=== PATIENT | female | born 1955 | race American Indian/Alaskan Native ===

== ENCOUNTER 2017-02-04 13:54 | Emergency (ER) | payer MEDICAID ==
[2017-02-04 14:33] LABS: Hematocrit 38.1 % (30.3-42.9); Hemoglobin 12.8 gm/dl (10.1-14.3); Mean Corpuscular HGB Conc 34 % (30-34); Mean Corpuscular Hemoglobin 29 pg (28-32); Mean Corpuscular Volume 85 fl (79-97); Platelet Count 140 K/mm3 (140-440); Red Blood Count 4.47 M/mm3 (3.65-5.03); Red Cell Distribution Width 13.8 % (13.2-15.2); White Blood Count 6.9 K/mm3 (4.5-11.0)
[2017-02-04 14:50] LABS: Alanine Aminotransferase 46 units/L (7-56); Albumin 3.5 g/dL (3.9-5); Albumin/Globulin Ratio 0.9 %; Alkaline Phosphatase 112 units/L (35-129); Anion Gap 19 mmol/L; BUN/Creatinine Ratio 7.14; Blood Urea Nitrogen 5 mg/dL (7-17); Calcium 9.5 mg/dL (8.4-10.2); Carbon Dioxide 27 mmol/L (22-30); Glucose 116 mg/dL (65-100); Lipase 29 units/L (13-60); Potassium 3.3 mmol/L (3.6-5.0); Sodium 133 mmol/L (137-145); Total Protein 7.6 g/dL (6.3-8.2)
[2017-02-04 15:46] LABS: Basophils % (Manual) 0 % (0.0-1.8); Blastocytes % (Manual) 0 %; Eosinophils % (Manual) 0 % (0.0-4.3)
[2017-02-04 15:47] LABS: Diff Status Complete; Platelet Estimate Consistent w Auto; Target Cells 1+
[2017-02-04 20:30] VITALS: BP 111/85
[2017-02-04] MEDS ORDERED: K-DUR PO ONE (20:40)
--- NOTE | 2017-02-04 20:41 | Emergency Department Report ---
ED General Adult HPI - General Chief complaint: Abdominal Pain Stated complaint: WEAKNESS Time Seen by Provider: 02/04/17 20:29 Source: patient, RN notes reviewed Mode of arrival: Ambulatory Limitations: No Limitations - History of Present Illness Initial comments: This is a 62-year-old female who was previously on known to this provider, has a past medical history of arthritis, GERD, hypertension. She is brought in by her family "to get checked out." Patient reports that she has been feeling weak for about 1 week. She complains of weakness in her total body. This is intermittent, and does not have exacerbating or relieving factors. She denies headache, neck pain, chest pain, she does admit to cough and productive mucus, she also admits to left flank and left lower quadrant/back pain, which produced down the left lower extremity. This is intermittent, present for a few months, worse over the past week. He does not have exacerbating or relieving factors. She does complain of dysuria. The patient also admits that yesterday while out, she was walking, and "stumbled ", and reports that she stayed awake, but had a loss of awareness globally. This lasted for a few seconds. Her family corroborates that she did not pass out, or have convulsive activity, and that she did not fall. Her family further endorses of the patient appears to be her normal mental status at this time. There is no posterior leg pain or leg swelling, patient reports no recent surgeries or hospitalizations. -: Gradual, week(s) Location: back, left, lower extremity Severity scale (0 -10): 9 Consistency: intermittent Improves with: none Worsens with: none Associated Symptoms: confusion, cough, loss of appetite, malaise, weakness - Related Data Previous Rx's Medication Instructions Recorded Last Taken Type Ciprofloxacin HCl [Ciprofloxacin 500 mg PO BID #20 tablet 01/19/16 Unknown Rx TAB] Albuterol Sulfate [Proair 90 mcg IH Q4HR PRN #2 aer.[email or web address] 02/04/17 Unknown Rx Respiclick] Famotidine [Pepcid] 20 mg PO QDAY #30 tablet 02/04/17 Unknown Rx Magnesium Oxide 400 mg PO QDAY #10 tablet 02/04/17 Unknown Rx Nitrofurantoin Greene/M-Cryst 100 mg PO Q12HR #13 capsule 09/24/17 Unknown Rx [Macrobid CAP] Ondansetron [Zofran Odt] 4 mg PO QID PRN #20 tab.rapdis 02/04/17 Unknown Rx Potassium Chloride 20 meq PO QDAY #10 packet 02/04/17 Unknown Rx Allergies Allergy/AdvReac Type Severity Reaction Status Date / Time No Known Allergies Allergy Unverified 01/19/16 12:58 ED Review of Systems ROS: Stated complaint: WEAKNESS Other details as noted in HPI Constitutional: malaise, weakness Eyes: denies: eye discharge ENT: congestion. denies: epistaxis Respiratory: cough Cardiovascular: denies: chest pain Gastrointestinal: abdominal pain Genitourinary: dysuria Musculoskeletal: arthralgia, myalgia Skin: denies: lesions Neurological: weakness, confusion ED Past Medical Hx - Past Medical History Hx Hypertension: Yes Hx GERD: Yes Hx Arthritis: Yes - Surgical History Past Surgical History?: Yes Additional Surgical History: LEG - Social History Smoking Status: Current Every Day Smoker Substance Use Type: Alcohol - Medications Home Medications: Home Medications Medication Instructions Recorded Confirmed Last Taken Type Ciprofloxacin HCl [Ciprofloxacin 500 mg PO BID #20 tablet 01/19/16 Unknown Rx TAB] Albuterol Sulfate [Proair 90 mcg IH Q4HR PRN #2 [email or web address] 02/04/17 Unknown Rx Respiclick] Famotidine [Pepcid] 20 mg PO QDAY #30 tablet 02/04/17 Unknown Rx Magnesium Oxide 400 mg PO QDAY #10 tablet 02/04/17 Unknown Rx Nitrofurantoin Greene/M-Cryst 100 mg PO Q12HR #13 capsule 02/04/17 Unknown Rx [Macrobid CAP] Ondansetron [Zofran Odt] 4 mg PO QID PRN #20 tab.rapdis 02/04/17 Unknown Rx Potassium Chloride 20 meq PO QDAY #10 packet 02/04/17 Unknown Rx ED Physical Exam - General Limitations: No Limitations General appearance: alert, in no apparent distress - Head Head exam: Present: atraumatic, normocephalic - Eye Eye exam: Present: normal appearance, EOMI, other (visual acuity intact to finger counting, color perception, reading at a close distance). Absent: nystagmus - ENT ENT exam: Present: normal exam, normal orophraynx, mucous membranes moist, normal external ear exam - Neck Neck exam: Present: normal inspection, full ROM. Absent: tenderness, meningismus - Respiratory Respiratory exam: Present: rhonchi (rhonchi noted in the right hemithorax). Absent: respiratory distress - Cardiovascular Cardiovascular Exam: Present: regular rate, normal rhythm, normal heart sounds. Absent: bradycardia, tachycardia, irregular rhythm, systolic murmur, diastolic murmur, rubs, gallop - GI/Abdominal GI/Abdominal exam: Present: soft, normal bowel sounds. Absent: distended, tenderness, guarding, rebound, rigid, pulsatile mass - Extremities Exam Extremities exam: Present: normal inspection (evidence of old right lower extremity leg surgery.), full ROM, normal capillary refill, other (2+ pulses are noted in the bilateral upper and lower extremities.). Absent: tenderness, pedal edema, joint swelling, calf tenderness (there is no palpable cord or Homans sign.) - Back Exam Back exam: Present: normal inspection, full ROM. Absent: tenderness, CVA tenderness (R), CVA tenderness (L), muscle spasm, paraspinal tenderness, vertebral tenderness - Neurological Exam Neurological exam: Present: alert (patient is alert to name, location, month. Does not know the year.), oriented X3, normal gait, other (Extraocular movements intact. Tongue midline. No facial droop. Facial sensation intact to light touch in the V1, V2, V3 distribution bilaterally. 5 and 5 strength in 4 extremities.. Sensation is intact to light touch in 4 extremities.). Absent : motor sensory deficit - Psychiatric Psychiatric exam: Present: normal affect, normal mood - Skin Skin exam: Present: warm, dry, intact, normal color. Absent: rash ED Course Vital Signs 02/04/17 02/04/17 02/04/17 14:05 20:26 21:33 Temperature 97.4 F L 99.6 F Pulse Rate 90 85 Pulse Rate [ 88 Posterior Bilateral Throughout] Respiratory 18 20 Rate Respiratory 18 Rate [Posterior Bilateral Throughout] Blood Pressure 116/84 Blood Pressure 111/85 [Left] O2 Sat by Pulse 97 100 Oximetry 02/04/17 21:43 Temperature Pulse Rate Pulse Rate [ 90 Posterior Bilateral Throughout] Respiratory Rate Respiratory 21 Rate [Posterior Bilateral Throughout] Blood Pressure Blood Pressure [Left] O2 Sat by Pulse Oximetry - Reevaluation(s) Reevaluation #1: 02/04/17 21:16 Differential diagnosis: Transient global amnesia, radiculopathy, pneumonia, bronchitis, electrolyte derangement, renal colic, AAA, general medical evaluation Assessment and plan: 62-year-old female with multiple complaints, including stumbling and transient alteration in awareness, without loss of consciousness, or seizure like activity, left-sided back pain and radicular radiation, cough and mucus production, and dysuria. Patient currently alert to name, month, location, walks with a steady gait, has a GCS of 15, with an NIH score of 0. No pulmonary and posterior DVT risk factors, low risk by well's criteria. Abdomen is soft and benign. She does have some focal pulmonary findings. We will obtain noncontrast CT scan of the brain. We will obtain noncontrast CT scan of the abdomen and pelvis and two-view of the chest x-ray. She is noted to be hypokalemic, hypomagnesemic, These will be repleted. Urinalysis is pending at this time. Given the patient by her own history and family says he did not have a loss of consciousness, I think arrhythmia/structural cardiac disease is unlikely, as she has so many complaints, and her history and physical exam are unremarkable except as noted. Patient has already been in the ER for 7.5 hours without clinical decompensation with normal vital signs, therefore I would consider her to have had an appropriate period of observation. If the remainder of her studies do not demonstrate any severe abdomen bowel to, patient will be discharged to follow-up with her outpatient primary care doctor, Dr. Jett. 02/04/17 21:18 Reevaluation #2: 02/04/17 22:36 CT scan demonstrates nonspecific left-sided extra-axial mass, with no edema, mass effect or shift. Case is discussed with [facility] neurosurgeon, Dr. Tyler , the patient's history, physical exam, and overall presentation were relayed to the consulting neurosurgeon. He recommends outpatient follow-up, based on her current physical exam, CT scan findings, he does not recommend transfer at this time, or antiepileptic drug therapy at this time. He does not recommend a specific timeframe to follow-up. Reevaluation #3: 02/04/17 23:19 Patient feels improved. Rhonchi have resolved. CT scan of the abdomen and pelvis demonstrates numerous nonspecific findings. These can all be followed up by her primary care doctor. Patient urine does suggest urinary tract infection. She will be started on Macrobid. She will be discharged with magnesium supplementation, potassium supplementation, as needed albuterol, famotidine, and nausea medication. She is instructed to follow up with outpatient primary care, and outpatient neurosurgery for her incidental CT scan findings. Patient also given a copy of laboratory studies and CT scan report. She is accompanied by family at this time. Return precautions are reviewed. ED Medical Decision Making - Lab Data Result diagrams: 02/04/17 14:13 02/04/17 14:13 Vital Signs 02/04/17 02/04/17 14:05 20:26 Temperature 97.4 F L 99.6 F Pulse Rate 90 85 Respiratory 18 20 Rate Blood Pressure 116/84 Blood Pressure 111/85 [Left] O2 Sat by Pulse 97 100 Oximetry Lab Results 02/04/17 02/04/17 02/04/17 Range/Units 14:13 14:13 14:13 WBC 6.9 (4.5-11.0) K/mm3 RBC 4.47 (3.65-5.03) M/mm3 Hgb 12.8 (10.1-14.3) gm/dl Hct 38.1 (30.3-42.9) % MCV 85 (79-97) fl MCH 29 (28-32) pg MCHC 34 (30-34) % RDW 13.8 (13.2-15.2) % Plt Count 140 (140-440) K/mm3 Greene % (Auto) Stock Room Manager Add Manual Diff Complete Total Counted 100 Seg Neuts % (Manual) 36.0 L (40.0-70.0) % Band Neutrophils % 22.0 % Lymphocytes % (Manual) 28.0 (13.4-35.0) % Reactive Lymphs % (Man) 1.0 % Monocytes % (Manual) 13.0 H (0.0-7.3) % Eosinophils % (Manual) 0 (0.0-4.3) % Basophils % (Manual) 0 (0.0-1.8) % Metamyelocytes % 0 % Myelocytes % 0 % Promyelocytes % 0 % Blast Cells % 0 % Nucleated RBC % Not Reportable Seg Neutrophils # Man 2.5 (1.8-7.7) K/mm3 Band Neutrophils # 1.5 K/mm3 Lymphocytes # (Manual) 1.9 (1.2-5.4) K/mm3 Abs React Lymphs (Man) 0.1 K/mm3 Monocytes # (Manual) 0.9 H (0.0-0.8) K/mm3 Eosinophils # (Manual) 0.0 (0.0-0.4) K/mm3 Basophils # (Manual) 0.0 (0.0-0.1) K/mm3 Metamyelocytes # 0.0 K/mm3 Myelocytes # 0.0 K/mm3 Promyelocytes # 0.0 K/mm3 Blast Cells # 0.0 K/mm3 WBC Morphology Not Reportable Hypersegmented Neuts Not Reportable Hyposegmented Neuts Not Reportable Hypogranular Neuts Not Reportable Smudge Cells Not Reportable Toxic Granulation Not Reportable Toxic Vacuolation Not Reportable Dohle Bodies Not Reportable Pelger-Huet Anomaly Not Reportable Kristin Rods Not Reportable Platelet Estimate Consistent w auto Clumped Platelets Not Reportable Plt Clumps, EDTA Not Reportable Large Platelets Not Reportable Giant Platelets Not Reportable Platelet Satelliting Not Reportable Plt Morphology Comment Not Reportable RBC Morphology Not Reportable Dimorphic RBCs Not Reportable Polychromasia Not Reportable Hypochromasia Not Reportable Poikilocytosis Not Reportable Anisocytosis Not Reportable Microcytosis Not Reportable Macrocytosis Not Reportable Spherocytes Not Reportable Pappenheimer Bodies Not Reportable Sickle Cells Not Reportable Target Cells 1+ Tear Drop Cells Not Reportable Ovalocytes Not Reportable Helmet Cells Not Reportable [place] Bodies Not Reportable [place] Rings Not Reportable [place] Cells Not Reportable Bite Cells Not Reportable Crenated Cell Not Reportable Elliptocytes Not Reportable Acanthocytes (Spur) Not Reportable Rouleaux Not Reportable Hemoglobin C Crystals Not Reportable Schistocytes Not Reportable Malaria parasites Not Reportable [place] Bodies Not Reportable Hem Pathologist Commnt No Sodium 133 L (137-145) mmol/L Potassium 3.3 L (3.6-5.0) mmol/L Chloride 90.0 L (98-107) mmol/L Carbon Dioxide 27 (22-30) mmol/L Anion Gap 19 mmol/L BUN 5 L (7-17) mg/dL Creatinine 0.7 (0.7-1.2) mg/dL Estimated GFR > 60 ml/min BUN/Creatinine Ratio 7.14 % Glucose 116 H (65-100) mg/dL Calcium 9.5 (8.4-10.2) mg/dL Magnesium 1.50 L (1.7-2.3) mg/dL Total Bilirubin 1.50 H (0.1-1.2) mg/dL AST 141 H (5-40) units/L ALT 46 (7-56) units/L Alkaline Phosphatase 112 (35-129) units/L Total Protein 7.6 (6.3-8.2) g/dL Albumin 3.5 L (3.9-5) g/dL Albumin/Globulin Ratio 0.9 % Lipase 29 (13-60) units/L - EKG Data -: EKG Interpreted by Me - EKG Data 02/04/17 21:35 Sinus, 85 bpm, QTC 455 ms, T-wave inversion in aVL, T-wave inversion in V2, abnormal EKG, knocks morphologically consistent with STEMI. Currently unable to access prior EKG. - Radiology Data Radiology results: report reviewed, image reviewed Noncontrast CT scan of the brain demonstrates a well circumscribed hyperdense heterogeneous dural based extra-axial mass over the left frontal lobe that is 2 x 2.7 cm. There is moderate diffuse atrophy. Relative areas of hypodensity seen within the white matter of the cerebral hemispheres. This may represent meningioma, other etiology is not excluded. CT scan of the abdomen and pelvis demonstrates bladder wall thickening, DJD, possible gastritis. Critical care attestation.: If time is entered above; I have spent that time in minutes in the direct care of this critically ill patient, excluding procedure time. ED Disposition Clinical Impression: UTI (urinary tract infection), Hypokalemia, Intracranial mass Disposition: DC-01 TO HOME OR SELFCARE Is pt being admited?: No Does the pt Need Aspirin: No Condition: Stable Instructions: Abdominal Pain (ED) Additional Instructions: Local neurosurgeons include Dr. Saeid Mcgarry, and Dr. Chiu Follow up with any of the listed primary care doctors within the next 2 weeks. take potassium, magnesium supplementation, antibiotic therapy as directed, abdominal pain medicine and cough medicine as directed. CT scan also demonstrated nonspecific thickening in the stomach, this can be followed up by a care mgr within the next 2 months. is a local care mgr. Return to the ER right away with fevers, chills, lethargy, irritability, projectile vomiting, change in mental status, inability to tolerate liquid feeds. Follow up with a neurosurgeon within the next 2 weeks. [facility]: Primary Location [address] [place] [address] [facility] neurosurgery: Department of Neurosurgery Mailing Address: Department of Neurosurgery [id number] [place] [address] Department of Neurosurgery Office Numbers: Prescriptions: Albuterol Sulfate [Proair Respiclick] 90 mcg IH Q4HR PRN #2 aer.[email or web address] PRN Reason: Wheezing Famotidine [Pepcid] 20 mg PO QDAY #30 tablet Magnesium Oxide 400 mg PO QDAY #10 tablet Nitrofurantoin Greene/M-Cryst [Macrobid CAP] 100 mg PO Q12HR #13 capsule Ondansetron [Zofran Odt] 4 mg PO QID PRN #20 tab.rapdis PRN Reason: Nausea Potassium Chloride 20 meq PO QDAY #10 packet Referrals: KENN GONZALES MD [Staff Physician] - 3-5 Days PRIMARY CARE, [Primary Care Provider] - 3-5 Days CELY JULIAN MD [Staff Physician] - 3-5 Days GOPAL CHIU MD [Staff Physician] - 3-5 Days OPAL KUNZ MD [Staff Physician] - 3-5 Days PINO ZHANG MD [Staff Physician] - 3-5 Days
[2017-02-04] MEDS ORDERED: PROVENTIL IH ONE (21:00)
--- NOTE | 2017-02-04 21:28 | Cat Scan Report ---
FINAL REPORT EXAM: CT HEAD/BRAIN WO CON HISTORY: transient alteration on consciousness TECHNIQUE: Noncontrast serial axial images from skull base to vertex PRIORS: None. FINDINGS: There is a well-circumscribed hyperdense heterogeneous dural-based extra-axial mass over the left frontal lobe that measures up to 2 x 2.7 centimeters in axial dimension. There is moderate diffuse atrophy. There is no midline shift. Lateral ventricles are normal in size and configuration. Basilar cisterns are patent. No acute intracranial hemorrhage is identified. Areas of relative hypodensity are seen in the white matter of the cerebral hemispheres. Atherosclerotic calcifications are noted. Paranasal sinuses and mastoid air cells are well aerated. No acute osseous abnormality is identified. IMPRESSION: 1. Hyperdense extra-axial mass is seen over the left frontal lobe. This may represent meningioma. Other etiology is not excluded. This can be further assessed with contrast enhanced MRI. Neurosurgical consultation is recommended. 2. Areas of relative hypodensity are seen in the white matter of the cerebral hemispheres. This is a nonspecific finding. It may be related to chronic ischemic change from small vessel disease. UNF
--- NOTE | 2017-02-04 22:39 | XRay Report ---
FINAL REPORT EXAM: XR CHEST ROUTINE 2V HISTORY: cough rhonchi COMPARISON: None available. FINDINGS:: Frontal and lateral views of the chest obtained. Cardiac silhouette is within normal limits. No focal consolidation or effusion. No pneumothorax. Visualized bony thorax is grossly intact. Is a nodular density projecting over the medial right lung base suspect represent prominent nipple shadow. IMPRESSION:: Probable prominent nipple shadow projecting over the right lung base. Lungs otherwise clear. Followup exam suggested to assess stability of probable nipple shadow.
--- NOTE | 2017-02-04 22:49 | Cat Scan Report ---
FINAL REPORT EXAM: CT ABDOMEN PELVIS WO CON HISTORY: abd pain TECHNIQUE: Serial axial images through the abdomen and pelvis with coronal and sagittal reconstruction. PRIORS: None. FINDINGS: Study is limited by lack of intravenous contrast. No focal consolidations are seen in the lung bases. No pleural effusion is seen. There is diffuse fatty infiltration of the liver. Gallbladder, pancreas, spleen and adrenal glands appear within normal limits. Kidneys appear within normal limits. Atherosclerotic changes are seen in the aorta. No aneurysmal dilatation is seen. Bladder is decompressed. The wall the bladder appears thickened. Calcified masses are seen in the uterus, consistent with fibroids. There is gas in the endometrial canal in an area that measures 2.8 x 3.3 centimeters in axial dimension. No free fluid. Appendix appears normal. No gross bowel abnormality is identified. The wall the stomach appears thickened. No acute osseous abnormality is identified. There are degenerative changes in the spine. IMPRESSION: 1. Study is limited by lack of intravenous contrast. 2. Fatty infiltration of the liver. 3. The uterus appears abnormal. Calcified masses are seen which may represent fibroids. There gas in the endometrial canal. This is a nonspecific finding, but could indicate presence of infection and or underlying neoplastic process. J Comput Assist Tomogr. 1983 Oct; 7(5):842-5. 4. The wall the stomach appears to be thickened. This may be exaggerated by nondistention. Possibility of inflammatory or other infiltrative process is not excluded. The patient can be further assessed endoscopically if indicated. 5. The wall the bladder appears slightly thickened. This may be exaggerated by nondistention. This could be related to cystitis in the proper clinical setting.
[2017-02-04 23:14] LABS: Bacteria,Urine 1+ /HPF (Negative); Bilirubin,Urine SM (Negative); Blood,Urine SM (Negative); Ketones,Urine 20 mg/dL (Negative); Leukocyte Esterase,Urine MOD (Negative); Mucus,Urine 3+ /HPF; Nitrite,Urine NEG (Negative)
[2017-02-04] MEDS ORDERED: MACROBID PO ONE (23:18)
== END 2017-02-05 00:03 | disposition home or self-care (01) ==
LOC: ED 13:54
DX: N39.0 Urinary tract infection, site not specified (principal); E87.6 Hypokalemia; G93.9 Disorder of brain, unspecified; I10 Essential (primary) hypertension; K21.9 Gastro-esophageal reflux disease without esophagitis; M19.90 Unspecified osteoarthritis, unspecified site; F17.210 Nicotine dependence, cigarettes, uncomplicated
CPT/HCPCS: 36415; 70450; 71020; 74176; 80053; 81001; 83690; 83735; 84484; 85007; 85025; 87086; 93005; 93010; 94640; 99284

== ENCOUNTER 2018-03-03 20:29 | Emergency (ER) | payer MEDICAID ==
[2018-03-03] MEDS ORDERED: NACL 0.9% 1000 ML 1,000 ML IV ONE ×2 (21:29→23:53)
[2018-03-03 21:54] LABS: Basophils % (Auto) 0.4 % (0.0-1.8); Hematocrit 31.1 % (30.3-42.9); Hemoglobin 10.3 gm/dl (10.1-14.3); Lymphocytes # (Auto) 0.3 K/mm3 (1.2-5.4); Lymphocytes % (Auto) 4.4 % (13.4-35.0); Mean Corpuscular HGB Conc 33 % (30-34); Mean Corpuscular Hemoglobin 28 pg (28-32); Mean Corpuscular Volume 84 fl (79-97); Monocytes # (Auto) 0.5 K/mm3 (0.0-0.8); Monocytes % (Auto) 6.2 % (0.0-7.3); Platelet Count 144 K/mm3 (140-440); Red Blood Count 3.69 M/mm3 (3.65-5.03); Red Cell Distribution Width 19.1 % (13.2-15.2)
[2018-03-03] MEDS ORDERED: ZOFRAN IV ONE (22:07)
[2018-03-03] MEDS ORDERED: ZOFRAN ONE (22:11)
[2018-03-03 22:12] LABS: Alanine Aminotransferase 31 units/L (7-56); Albumin 3.1 g/dL (3.9-5); BUN/Creatinine Ratio 10; Blood Urea Nitrogen 6 mg/dL (7-17); Calcium 8.3 mg/dL (8.4-10.2); Hemolysis Index 3; Lipase 20 units/L (13-60)
--- NOTE | 2018-03-03 22:12 | Emergency Department Report ---
ED Abdominal Pain HPI - General Chief Complaint: Nausea/Vomiting/Diarrhea Stated Complaint: EMESIS/WEAKNESS Time Seen by Provider: 03/03/18 22:03 Source: patient Mode of arrival: Ambulatory Limitations: No Limitations - History of Present Illness Initial Comments: Patient is 63 years old female with history of hypertension and asthma. Patient presented to the ER complaining of abdominal pain, crampy in nature, diffuse with no radiation. Patient stated that pain started yesterday after she ate egg roll. Patient presented with nausea vomiting and watery diarrhea. Patient denied any fever, chest pain, or shortness of breath or headache. Patient is complaining of generalized weakness. MD Complaint: abdominal pain Location: diffuse Radiation: none Severity scale (0 -10): 4 Quality: cramping Consistency: intermittent Context: possible food poisoning - Related Data Previous Rx's Medication Instructions Recorded Last Taken Type Ciprofloxacin HCl [Ciprofloxacin 500 mg PO BID #20 tablet 01/19/16 Unknown Rx TAB] Albuterol Sulfate [Proair 90 mcg IH Q4HR PRN #2 aer.pow.ba 02/04/17 Unknown Rx Respiclick] Famotidine [Pepcid] 20 mg PO QDAY #30 tablet 02/04/17 Unknown Rx Magnesium Oxide 400 mg PO QDAY #10 tablet 02/04/17 Unknown Rx Nitrofurantoin [place]/M-Cryst 100 mg PO Q12HR #13 capsule 02/04/17 Unknown Rx [Macrobid CAP] Ondansetron [Zofran Odt] 4 mg PO QID PRN #20 tab.rapdis 02/04/17 Unknown Rx Potassium Chloride 20 meq PO QDAY #10 packet 02/04/17 Unknown Rx Ciprofloxacin HCl [Ciprofloxacin 500 mg PO Q12H #14 tab 03/04/18 Unknown Rx TAB] Ondansetron [Zofran Odt] 4 mg PO Q8HR PRN #14 tab.rapdis 03/04/18 Unknown Rx Allergies Allergy/AdvReac Type Severity Reaction Status Date / Time No Known Allergies Allergy Unverified 01/19/16 12:58 ED Review of Systems ROS: Stated complaint: EMESIS/WEAKNESS Other details as noted in HPI Comment: All other systems reviewed and negative Constitutional: denies: chills, fever Respiratory: denies: cough, orthopnea, shortness of breath, SOB with exertion, SOB at rest, wheezing Cardiovascular: palpitations. denies: chest pain Gastrointestinal: abdominal pain, nausea, vomiting, diarrhea. denies: constipation, hematemesis, melena, hematochezia Musculoskeletal: denies: back pain Neurological: denies: headache, weakness, numbness ED Past Medical Hx - Past Medical History Hx Hypertension: Yes Hx GERD: Yes Hx Arthritis: Yes Hx Asthma: Yes - Surgical History Additional Surgical History: LEG - Social History Smoking Status: Current Every Day Smoker Substance Use Type: Alcohol - Medications Home Medications: Home Medications Medication Instructions Recorded Confirmed Last Taken Type Ciprofloxacin HCl [Ciprofloxacin 500 mg PO BID #20 tablet 01/19/16 Unknown Rx TAB] Albuterol Sulfate [Proair 90 mcg IH Q4HR PRN #2 aer.pow.ba 02/04/17 Unknown Rx Respiclick] Famotidine [Pepcid] 20 mg PO QDAY #30 tablet 02/04/17 Unknown Rx Magnesium Oxide 400 mg PO QDAY #10 tablet 02/04/17 Unknown Rx Nitrofurantoin [place]/M-Cryst 100 mg PO Q12HR #13 capsule 02/04/17 Unknown Rx [Macrobid CAP] Ondansetron [Zofran Odt] 4 mg PO QID PRN #20 tab.rapdis 02/04/17 Unknown Rx Potassium Chloride 20 meq PO QDAY #10 packet 02/04/17 Unknown Rx Ciprofloxacin HCl [Ciprofloxacin 500 mg PO Q12H #14 tab 03/04/18 Unknown Rx TAB] Ondansetron [Zofran Odt] 4 mg PO Q8HR PRN #14 tab.rapdis 03/04/18 Unknown Rx ED Physical Exam - General Limitations: No Limitations General appearance: alert, in no apparent distress - Head Head exam: Present: atraumatic, normocephalic, normal inspection - Eye Eye exam: Present: normal appearance, PERRL - ENT ENT exam: Present: mucous membranes dry - Neck Neck exam: Present: normal inspection, full ROM. Absent: tenderness, meningismus, lymphadenopathy, thyromegaly - Respiratory Respiratory exam: Present: normal lung sounds bilaterally. Absent: respiratory distress, wheezes, rales, rhonchi, stridor, chest wall tenderness, accessory muscle use, decreased breath sounds, prolonged expiratory - Cardiovascular Cardiovascular Exam: Present: tachycardia - GI/Abdominal GI/Abdominal exam: Present: soft, normal bowel sounds. Absent: distended, tenderness, guarding, rebound, rigid, organomegaly, mass, bruit, pulsatile mass , hernia - Extremities Exam Extremities exam: Present: normal inspection, full ROM, normal capillary refill. Absent: pedal edema, calf tenderness - Back Exam Back exam: Present: normal inspection, full ROM. Absent: CVA tenderness (R), CVA tenderness (L), muscle spasm, paraspinal tenderness, vertebral tenderness - Neurological Exam Neurological exam: Present: alert, oriented X3, CN II-XII intact, normal gait, reflexes normal - Skin Skin exam: Present: warm, intact, normal color ED Course Vital Signs 03/03/18 03/03/18 03/03/18:18 21:53 22:01 Temperature 97.7 F Pulse Rate 124 H 101 H Respiratory 18 23 Rate Blood Pressure 102/84 103/75 O2 Sat by Pulse 99 98 98 Oximetry 03/03/18 03/03/18 03/03/18 22:15 22:31 22:45 Temperature Pulse Rate 110 H 100 H 103 H Respiratory 17 25 H 16 Rate Blood Pressure 103/75 103/75 109/79 O2 Sat by Pulse 99 99 99 Oximetry 03/03/18 03/04/18 03/04/18 23:15 00:00 00:15 Temperature Pulse Rate 94 H 95 H 107 H Respiratory 15 20 15 Rate Blood Pressure 109/79 105/65 105/65 O2 Sat by Pulse 98 93 97 Oximetry 03/04/18 03/04/18 03/04/18 00:31 00:45 01:01 Temperature Pulse Rate 108 H 94 H 111 H Respiratory 10 L 18 18 Rate Blood Pressure 109/79 109/79 105/65 O2 Sat by Pulse 100 95 93 Oximetry 03/04/18 03/04/18 03/04/18 01:17 01:31 02:15 Temperature Pulse Rate 109 H 94 H 94 H Respiratory 20 15 19 Rate Blood Pressure 105/65 115/71 98/63 O2 Sat by Pulse 99 99 100 Oximetry - Reevaluation(s) Reevaluation #1: 03/04/18 01:18 Patient stated that she is feeling much better. No more nausea or vomiting. ED Medical Decision Making - Lab Data Result diagrams: 03/03/18 21:41 03/03/18 21:41 - Medical Decision Making Patient is 63 years old female with history of hypertension and asthma. Patient presented to the ER complaining of abdominal pain, crampy in nature, diffuse with no radiation. Patient stated that pain started yesterday after she ate egg roll. Patient presented with nausea vomiting and watery diarrhea. Patient denied any fever, chest pain, or shortness of breath or headache. Patient is complaining of generalized weakness. On exam patient abdomen is soft and nontender. Patient was actively vomiting in the ER. She received Zofran and vomiting discontinue. Patient received a liter of normal saline. She stated that she is feeling much better. I believe this is most likely food poisoning. I advised patient to increase her by mouth intake and to follow-up with her primary care physician in the next 2-3 days and to return to the ER if her symptoms are not improved. Critical care attestation.: If time is entered above; I have spent that time in minutes in the direct care of this critically ill patient, excluding procedure time. ED Disposition Clinical Impression: Nausea vomiting and diarrhea, Dehydration, Abdominal pain Disposition: DC- TO HOME OR SELFCARE Is pt being admited?: No Condition: Stable Instructions: Acute Nausea and Vomiting (ED), Abdominal Pain (ED) Prescriptions: Ciprofloxacin HCl [Ciprofloxacin TAB] 500 mg PO Q12H #14 tab Ondansetron [Zofran Odt] 4 mg PO Q8HR PRN #14 tab.rapdis PRN Reason: Nausea And Vomiting Referrals: PRIMARY CARE, [Primary Care Provider] - 3-5 Days
[2018-03-04 01:49] LABS: Amorphous Crystals,Urine 1+; Bacteria,Urine 1+ /HPF (Negative); Bilirubin,Urine NEG (Negative); Blood,Urine SM (Negative); Color,Urine Amber (Yellow); Hyaline Casts,Urine 2 /LPF; Mucus,Urine FEW /HPF
[2018-03-04 01:51] LABS: Urobilinogen,Urine < 2.0 mg/dL (<2.0)
[2018-03-04 02:26] VITALS: BP 98/63
== END 2018-03-04 02:33 | disposition home or self-care (01) ==
LOC: ED 20:29
DX: E86.0 Dehydration (principal); R10.84 Generalized abdominal pain; R11.2 Nausea with vomiting, unspecified; R19.7 Diarrhea, unspecified; I10 Essential (primary) hypertension; K21.9 Gastro-esophageal reflux disease without esophagitis; M19.90 Unspecified osteoarthritis, unspecified site; J45.909 Unspecified asthma, uncomplicated; F17.200 Nicotine dependence, unspecified, uncomplicated
CPT/HCPCS: 36415; 80053; 81001; 83690; 85025; 96361; 96374; 99283; J2405; J7030

== ENCOUNTER 2018-10-13 00:40 | Emergency (ER) | payer MEDICARE ==
[2018-10-13 00:50] VITALS: BP 122/79
--- NOTE | 2018-10-13 05:04 | XRay Report ---
PROCEDURE: XR SHOULDER 2+V RT TECHNIQUE: 3 views right shoulder HISTORY: right shoulder injury COMPARISONS: None FINDINGS: The right glenohumeral joint appears intact. Acromioclavicular and coracoclavicular intervals are wit hin normal limits. Mild osteoarthrosis. No displaced fracture. No acute finding within the partially imaged right lung. IMPRESSION: No acute right shoulder findings This document is electronically signed by Stepan Soria MD., October 13 2018 06:02:37 AM ET
--- NOTE | 2018-10-17 11:58 | Emergency Department Report ---
Blank Doc - Documentation Documentation: Patient left without being seen or receiving a medical screening exam
== END 2018-10-13 02:15 | disposition left against medical advice (07) ==
LOC: ED 00:40
DX: M25.511 Pain in right shoulder (principal); Z53.21 Procedure and treatment not carried out due to patient leaving prior to being seen by health care provider

== ENCOUNTER 2019-11-07 22:48 | Emergency (ER) | payer MEDICARE ==
[2019-11-07 23:00] VITALS: BP 137/77
--- NOTE | 2019-11-07 23:58 | XRay Report ---
LEFT HIP AND PELVIS 2 VIEWS INDICATION: pain, S/P fall. COMPARISON: No relevant prior imaging study available. FINDINGS: No acute, displaced fracture or dislocation is seen. There is mild osteoarthrosis. Calcified fibroid is noted in the midline pelvis. IMPRESSION: 1. No acute findings. Signer Name: Antony Freitas MD Signed: 11/07/2019 11:53 PM Workstation Name: [id number]
--- NOTE | 2019-11-07 23:59 | XRay Report ---
CHEST PA AND LATERAL VIEWS INDICATION: LARISA. COMPARISON: 02/04/2017 FINDINGS: Support devices: None. Heart: Within normal limits. Lungs/Pleura: No acute pulmonary or pleural findings. Mild chronic lower thoracic compression deformity is again noted. IMPRESSION: 1. No acute findings. Signer Name: Antony Freitas MD Signed: 11/07/2019 11:54 PM Workstation Name: [id number]
[2019-11-08] MEDS ORDERED: dexAMETHasone 20 MG/5 ML VIAL IM ONE (01:10)
[2019-11-08] MEDS ORDERED: ACETAMINOPHEN 500 MG TAB PO ONE (01:10)
[2019-11-08] MEDS ORDERED: traMADol 50 MG TAB PO ONE (01:10)
--- NOTE | 2019-11-08 02:21 | Emergency Department Report ---
ED Lower Extremity HPI - General Chief Complaint: Extremity Injury, Lower Stated Complaint: HIP PAIN/FALL Time Seen by Provider: 11/08/19 00:39 Source: patient Mode of arrival: Ambulatory Limitations: No Limitations - History of Present Illness Initial Comments: Ms. Sahni is a 64-year-old -[place] female who presents for left hip pain is acute on chronic exacerbation per patient. Patient states she fell Attempting to get on stool on yesterday. Patient remains amatory however complains of 6/10 left hip pain that radiates to the low back. There is no hematuria, no dysuria, frequency or urgency. Pain is exacerbated by movement , pain is relieved by rest and offloading. MD Complaint: hip injury Onset/Timin -: days(s) Injury: Hip: Left Type of Injury: unknown Place: home Severity: moderate Severity scale (0 -10): 5 Improves With: NSAID, rest Worsens With: movement, palpation Other Symptoms: SOB, nausea/vomiting, seizure Associated Symptoms: denies: snap/pop sensation, swelling, numbness, tingling, unable to bear weight, able to partially bear weight, ambulatory - Related Data Previous Rx's Medication Instructions Recorded Last Taken Type Ciprofloxacin HCl [Ciprofloxacin 500 mg PO BID #20 tablet 01/19/16 Unknown Rx TAB] Albuterol Sulfate [Proair 90 mcg IH Q4HR PRN #2 aer.pow.ba 02/04/17 Unknown Rx Respiclick] Famotidine [Pepcid] 20 mg PO QDAY #30 tablet 02/04/17 Unknown Rx Magnesium Oxide 400 mg PO QDAY #10 tablet 02/04/17 Unknown Rx Nitrofurantoin [place]/M-Cryst 100 mg PO Q12HR #13 capsule 02/04/17 Unknown Rx [Macrobid CAP] Ondansetron [Zofran Odt] 4 mg PO QID PRN #20 tab.rapdis 02/04/17 Unknown Rx Potassium Chloride 20 meq PO QDAY #10 packet 02/04/17 Unknown Rx Ciprofloxacin HCl [Ciprofloxacin 500 mg PO Q12H #14 tab 03/04/18 Unknown Rx TAB] Ondansetron [Zofran Odt] 4 mg PO Q8HR PRN #14 tab.rapdis 03/04/18 Unknown Rx Acetaminophen [Acetaminophen TAB] 1,000 mg PO Q6HR #30 tablet 11/08/19 Unknown Rx Menthol/Camphor [[place] 1 applicatio TP QID PRN #1 tube 11/08/19 Unknown Rx Ointment] predniSONE [Deltasone] 40 mg PO QDAY 5 Days #10 tab 11/08/19 Unknown Rx traMADoL [Ultram] 50 mg PO Q6HR PRN #12 tablet 11/08/19 Unknown Rx Allergies Allergy/AdvReac Type Severity Reaction Status Date / Time No Known Allergies Allergy Verified 10/13/18 00:44 ED Review of Systems ROS: Stated complaint: HIP PAIN/FALL Other details as noted in HPI Constitutional: denies: chills, fever Eyes: denies: eye pain, eye discharge, vision change ENT: denies: ear pain, throat pain Respiratory: denies: cough, shortness of breath, wheezing Cardiovascular: as per HPI Endocrine: no symptoms reported. denies: intolerance to cold Gastrointestinal: vomiting. denies: abdominal pain, nausea, diarrhea, constipation Genitourinary: denies: urgency, dysuria, discharge Musculoskeletal: denies: back pain, joint swelling, arthralgia Skin: denies: rash, lesions Neurological: denies: headache, weakness, numbness, paresthesias, confusion, vertigo Psychiatric: denies: anxiety, depression Hematological/Lymphatic: denies: easy bleeding, easy bruising ED Past Medical Hx - Past Medical History Previous Medical History?: Yes Hx Hypertension: Yes Hx GERD: Yes Hx Arthritis: Yes Hx Asthma: Yes - Surgical History Past Surgical History?: Yes Additional Surgical History: LEG - Social History Smoking Status: Current Every Day Smoker Substance Use Type: None - Medications Home Medications: Home Medications Medication Instructions Recorded Confirmed Last Taken Type Ciprofloxacin HCl [Ciprofloxacin 500 mg PO BID #20 tablet 01/19/16 Unknown Rx TAB] Albuterol Sulfate [Proair 90 mcg IH Q4HR PRN #2 aer.pow.ba 02/04/17 Unknown Rx Respiclick] Famotidine [Pepcid] 20 mg PO QDAY #30 tablet 02/04/17 Unknown Rx Magnesium Oxide 400 mg PO QDAY #10 tablet 02/04/17 Unknown Rx Nitrofurantoin [place]/M-Cryst 100 mg PO Q12HR #13 capsule 02/04/17 Unknown Rx [Macrobid CAP] Ondansetron [Zofran Odt] 4 mg PO QID PRN #20 tab.rapdis 02/04/17 Unknown Rx Potassium Chloride 20 meq PO QDAY #10 packet 02/04/17 Unknown Rx Ciprofloxacin HCl [Ciprofloxacin 500 mg PO Q12H #14 tab 03/04/18 Unknown Rx TAB] Ondansetron [Zofran Odt] 4 mg PO Q8HR PRN #14 tab.rapdis 03/04/18 Unknown Rx Acetaminophen [Acetaminophen TAB] 1,000 mg PO Q6HR #30 tablet 11/08/19 Unknown Rx Menthol/Camphor [[place] 1 applicatio TP QID PRN #1 tube 11/08/19 Unknown Rx Ointment] predniSONE [Deltasone] 40 mg PO QDAY 5 Days #10 tab 11/08/19 Unknown Rx traMADoL [Ultram] 50 mg PO Q6HR PRN #12 tablet 11/08/19 Unknown Rx ED Physical Exam - General Limitations: No Limitations General appearance: alert, in no apparent distress - Head Head exam: Present: atraumatic, normocephalic - Eye Eye exam: Present: normal appearance, PERRL, EOMI Pupils: Present: normal accommodation - ENT ENT exam: Present: mucous membranes moist - Neck Neck exam: Present: normal inspection, full ROM. Absent: tenderness - Respiratory Respiratory exam: Present: normal lung sounds bilaterally. Absent: respiratory distress, wheezes, rhonchi, stridor, chest wall tenderness - Cardiovascular Cardiovascular Exam: Present: regular rate, normal rhythm, normal heart sounds - GI/Abdominal GI/Abdominal exam: Present: soft, normal bowel sounds. Absent: distended, tenderness, guarding, rebound, rigid, mass, bruit, hernia - Rectal Rectal exam: Present: deferred - Extremities Exam Extremities exam: Present: normal inspection - Back Exam Back exam: Present: normal inspection, full ROM. Absent: tenderness, CVA tenderness (R), CVA tenderness (L), vertebral tenderness - Neurological Exam Neurological exam: Present: alert, altered, normal gait, reflexes normal - Psychiatric Psychiatric exam: Present: normal affect, normal mood - Skin Skin exam: Present: warm, dry, intact, normal color. 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 COMPARISON: No relevant prior imaging study available. FINDINGS: No acute, displaced fracture or dislocation is seen. There is mild osteoarthrosis. Calcified fibroid is noted in the midline pelvis. IMPRESSION: 1. No acute findings. Signer Name: Antony Freitas MD Signed: 11/07/2019 10:53 PM Workstation Name: [id number] - Medical Decision Making Pain is improved with medications given in the ED patient is amatory and tolerating p.o. intake, plan DC to home in stable condition with family member. NSAIDs rice therapy analgesic balm follow-up with orthopedics in 2 to 3 days back patient verbalized agreement and understanding with discharge plan DC to home in stable condition at this time Critical care attestation.: If time is entered above; I have spent that time in minutes in the direct care of this critically ill patient, excluding procedure time. ED Disposition Clinical Impression: Arthralgia Qualifiers: Joint pain location: hip Laterality: left Qualified Code(s): M25.552 - Pain in left hip Strain of left hip Qualifiers: Encounter type: initial encounter Qualified Code(s): S76.012A - Strain of muscle, fascia and tendon of left hip, initial encounter Disposition: DC-01 TO HOME OR SELFCARE Is pt being admited?: No Does the pt Need Aspirin: No Condition: Stable Instructions: Osteoarthritis (ED), Arthralgia (ED) Prescriptions: Acetaminophen [Acetaminophen TAB] 1,000 mg PO Q6HR #30 tablet predniSONE [Deltasone] 40 mg PO QDAY 5 Days #10 tab Menthol/Camphor [[place] Ointment] 1 applicatio TP QID PRN #1 tube PRN Reason: pain traMADoL [Ultram] 50 mg PO Q6HR PRN #12 tablet PRN Reason: Pain Referrals: OPAL TOBIN MD [Staff Physician] - 3-5 Days LIZ LOPEZ DO [Staff Physician] - 3-5 Days Forms: Work/School Release Form(ED) Time of Disposition: 02:44
[2019-11-08] MEDS ORDERED: HYDROcodone/ACETAMINOPHEN 5-325 MG TAB PO ONE (02:45)
== END 2019-11-08 02:55 | disposition home or self-care (01) ==
LOC: ED 22:48
DX: S76.012A Strain of muscle, fascia and tendon of left hip, initial encounter (principal); I10 Essential (primary) hypertension; K21.9 Gastro-esophageal reflux disease without esophagitis; M13.88 Other specified arthritis, other site; J45.909 Unspecified asthma, uncomplicated; F17.200 Nicotine dependence, unspecified, uncomplicated; Z79.899 Other long term (current) drug therapy; W17.89XA Other fall from one level to another, initial encounter; Y93.89 Activity, other specified; Y92.89 Other specified places as the place of occurrence of the external cause; Y99.8 Other external cause status
CPT/HCPCS: 71046; 73502; 96372; 99283; J1100